=== PATIENT | female | born 1995 | race Hispanic/Latino ===

== ENCOUNTER 2025-07-12 10:42 | Emergency (ER) | payer OTHER ==
[~2025-07-12] VITALS: Ht 160 cm; Wt 60.1 kg
[2025-07-12] MEDS ORDERED: RIZA10TA2 PO (11:00)
[2025-07-12] MEDS: NS (Normal Saline) 0.9% 1,000 ML IV ONE (12:38)
[2025-07-12] MEDS: diphenhydrAMINE 50 MG/ML VIAL IV ONE (12:38)
[2025-07-12] MEDS: KETOROLAC 30 MG/ML 1 ML VIAL IV ONE (12:38)
[2025-07-12] MEDS ORDERED: MUCI1TAB18 PO (13:47)
[2025-07-12] MEDS ORDERED: BENZ200C70 PO (13:48)
[2025-07-12 13:53] VITALS: BP 102/65; TEMP 98.4; O2SAT 100
== END 2025-07-12 13:59 | disposition home or self-care (01) ==
LOC: M ED 10:42
DX: B34.8 Other viral infections of unspecified site (principal); R51.9 Headache, unspecified; Z79.899 Other long term (current) drug therapy
CPT/HCPCS: 71046; 87486; 87581; 87633; 87798; 96374; 99284; J1200; J1885; J2765